=== PATIENT | female | born 1980 | race Native Hawaiian/Other Pacific Islander ===

== ENCOUNTER 2020-01-17 18:46 | Emergency (ER) | payer OTHER ==
[~2020-01-17] VITALS: Ht 165.1 cm; Wt 61.2 kg
[2020-01-17 19:00] VITALS: BP 139/83; TEMP 98.3
[2020-01-17 19:44] LABS: PLATELET COUNT 497 K/uL (152-353)
[2020-01-17 19:53] LABS: POTASSIUM 3.3 mmol/L (3.6-5.2); SODIUM 137 mmol/L (136-145)
[2020-01-17 21:18] LABS: PARTIAL THROMBOPLASTIN TIME 23.2 SECONDS (24.5-33.6)
== END 2020-01-18 09:40 | disposition other institution (70) ==
LOC: ED 18:46
PROVIDERS: Hospitalist
DX: F19.10 Other psychoactive substance abuse, uncomplicated (principal); F60.0 Paranoid personality disorder; R44.2 Other hallucinations; Z03.818 Encounter for observation for suspected exposure to other biological agents ruled out
CPT/HCPCS: 80053; 80307; 80320; 80329; 81000; 81025; 85027; 85610; 85730; 87635; 93005; 99285; U0003

== ENCOUNTER 2020-05-26 17:40 | Emergency (ER) | payer OTHER ==
[~2020-05-26] VITALS: Ht 165.1 cm; Wt 63.5 kg
[2020-05-26 18:20] LABS: PLATELET COUNT 324 K/uL (152-353)
[2020-05-26 18:36] LABS: POTASSIUM 3.4 mmol/L (3.6-5.2)
[2020-05-26 19:05] VITALS: BP 133/54
== END 2020-05-26 19:05 | disposition home or self-care (01) ==
LOC: ED 17:40
PROVIDERS: Hospitalist
DX: J06.9 Acute upper respiratory infection, unspecified (principal); J40 Bronchitis, not specified as acute or chronic; Z20.828 Contact with and (suspected) exposure to other viral communicable diseases; F17.210 Nicotine dependence, cigarettes, uncomplicated
CPT/HCPCS: 36415; 80048; 85027; 87635; 87651; 99283; U0003

== ENCOUNTER 2021-03-26 15:18 | Emergency (ER) | payer OTHER ==
[~2021-03-26] VITALS: Ht 165.1 cm; Wt 56.7 kg
[2021-03-26 15:30] VITALS: BP 130/62; TEMP 99
== END 2021-03-26 16:06 | disposition home or self-care (01) ==
LOC: ED 15:18
DX: Z53.21 Procedure and treatment not carried out due to patient leaving prior to being seen by health care provider (principal)
CPT/HCPCS: 99281